=== PATIENT | male | born 1975 | race Caucasian/White ===

== ENCOUNTER 2017-12-10 18:43 | Emergency (ER) | payer BC | END 2017-12-10 23:54 | disposition home or self-care (01) | LOC: D.ER 18:43 | DX: L02.214 Cutaneous abscess of groin (principal); F17.200 Nicotine dependence, unspecified, uncomplicated; I10 Essential (primary) hypertension ==

== ENCOUNTER 2018-02-04 17:20 | Emergency (ER) | payer BC | END 2018-02-04 22:44 | disposition home or self-care (01) | LOC: D.ER 17:20 | DX: M54.5 Low back pain (principal); F41.9 Anxiety disorder, unspecified; I10 Essential (primary) hypertension ==